=== PATIENT | female | born 1985 | race Caucasian/White ===

== ENCOUNTER 2018-08-13 10:26 | Outpatient (CLI) | payer OTHER | END 2018-08-13 10:29 | disposition home or self-care (01) | LOC: SONOGRAMA 10:26 | DX: E04.1 Nontoxic single thyroid nodule (principal) ==

== ENCOUNTER → 2020-05-03 | Outpatient (CLI) | payer OTHER | END | disposition home or self-care (01) | LOC: MAMO-SONO 14:15 → SONOGRAMA 14:51 | DX: E04.2 Nontoxic multinodular goiter (principal) ==

== ENCOUNTER 2022-10-24 10:12 | Outpatient (CLI) | payer OTHER | END 2022-10-24 11:09 | disposition home or self-care (01) | LOC: SONOGRAMA 10:12 | PROVIDERS: ATTEND Pathology Anatomic Pathology & Clinical Pathology | DX: D34 Benign neoplasm of thyroid gland (principal); E06.3 Autoimmune thyroiditis ==